=== PATIENT | male | born 1975 | race African-American/Black ===

== ENCOUNTER 2019-05-19 12:06 | Emergency (ER) | payer SELFPAY ==
[~2019-05-19] VITALS: Ht 167.6 cm; Wt 70.0 kg
[2019-05-19 14:13] VITALS: BP 152/62
[2019-05-19] MEDS ORDERED: IBUPROFEN 600MG TABLET PO ONE (14:15)
== END 2019-05-19 15:42 | disposition home or self-care (01) ==
LOC: ER 12:06
DX: M25.572 Pain in left ankle and joints of left foot (principal); R03.0 Elevated blood-pressure reading, without diagnosis of hypertension
CPT/HCPCS: 73610; 99283